=== PATIENT | male | born 1960 | race Caucasian/White ===

== ENCOUNTER 2018-09-01 10:45 | Day surgery (SDC) | payer BC ==
[2018-09-01] MEDS ORDERED: Lactated Ringers 1,000 ML IV SCH (11:00)
[2018-09-01] MEDS ORDERED: Lactated Ringers 1,000 ML IV ONE (13:25)
[2018-09-01] MEDS ORDERED: DIPRIVAN 200 MG/20 ML IV ONE ×2 (13:28→13:36)
[2018-09-01 14:53] VITALS: O2SAT 98
[2018-09-01 14:54] VITALS: BP 138/79; PULSE 60
--- NOTE | 2018-09-02 08:02 | OP ---
PROCEDURE DATE/TIME: 09/01/2018 1333 PREOPERATIVE DIAGNOSIS: Anemia. POSTOPERATIVE DIAGNOSIS: Normal colon. Minimal hemorrhoidal disease, moderate prep. PROCEDURE: Colonoscopy to cecum. PROCEDURE PERFORMED BY: Krystyna Pike M.D. COMPLICATIONS: None. ESTIMATED BLOOD LOSS: None. ANESTHESIA: MAC. SPECIMEN: None. HISTORY: This is a 58 year-old gentleman. It has been nine years since his last colonoscopy. He did not have any issues at that time. However, he was recently noted to be anemic and so he presents for colonoscopy. All risks, benefits, alternatives, H&P and consent have been reviewed and confirmed with the patient. Any remaining questions answered. DESCRIPTION OF PROCEDURE: He was brought to the endoscopy suite. Laid in left lateral decubitus position. A complete time out was performed. First a rectal exam was done. He does have mild hemorrhoidal disease and he also has an enlarged prostate which was already known. The scope was then inserted and gently advanced to the level of the cecum. There was a moderate amount of liquid stool throughout the colon. We suctioned and irrigated this. Overall prep was satisfactory for exam concerning lesion. Appendiceal orifice and ileocecal valve were identified and these were normal. The scope was then carefully withdrawn taking a circumferential view and continuing to irrigate and suction. The colon looked normal. I did not find any lesions or any cause of his anemia. There was no old blood. No new blood. No blood at all. The scope is completely withdrawn. The patient tolerated the procedure very well. No immediate complications. Due to the fact that we could miss a very small or very flat lesion because the prep was not perfect, I will put him on a five year interval. 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
== END 2018-09-01 15:00 | disposition home or self-care (01) ==
LOC: SDC 10:45
PROVIDERS: ATTEND Surgery
DX: D64.9 Anemia, unspecified (principal); K64.4 Residual hemorrhoidal skin tags
CPT/HCPCS: J2704

== ENCOUNTER 2020-08-08 09:24 | Day surgery (SDC) | payer BC ==
--- NOTE | 2020-08-08 08:29 | HP ---
HISTORY OF PRESENT ILLNESS: This is a gentleman who presents with a history of Dickens's disease and a hiatal hernia here for EGD surveillance. The patient reports occasional rare reflux better controlled with his lifestyle changes. PAST MEDICAL/SURGICAL HISTORY: Includes reflux disease, Dickens's disease, hiatal hernia, hemorrhoidectomy, knee surgery. MEDICATIONS: Omeprazole. ALLERGIES: PENICILLIN. SULFA. SOCIAL HISTORY: No tobacco. No alcohol use. FAMILY HISTORY: Father with liver cancer. Mother with kidney disease. PHYSICAL EXAMINATION: GENERAL: No acute distress. CVS: Regular rate and rhythm. PULMONARY: Nonlabored respirations. ABDOMEN: Soft, nontender, nondistended. EXTREMITIES: Normal. DIAGNOSIS: Hiatal hernia. Dickens's disease. PLAN: EGD. All risks, benefits and alternatives regarding EGD and biopsy have been discussed with him in detail and these will be based on their findings. The patient agreed and would like to proceed.
[2020-08-08] MEDS ORDERED: Lactated Ringers 1,000 ML IV ONE ×2 (09:34→11:05)
[2020-08-08] MEDS: Lactated Ringers 1,000 ML IV SCH (09:37)
[2020-08-08] MEDS ORDERED: DIPRIVAN 200 MG/20 ML IV ONE (10:24)
[2020-08-08] MEDS ORDERED: Versed 2 MG/2 ML Injection ONE (10:25)
[2020-08-08 11:34] VITALS: BP 119/78; PULSE 71; O2SAT 95
--- NOTE | 2020-08-10 08:53 | OP ---
PROCEDURE DATE/TIME: 08/08/2020 1027 PREOPERATIVE DIAGNOSES: 1) Dickens's disease. 2) Hiatal hernia. POSTOPERATIVE DIAGNOSES: 1) Dickens's disease. 2) Hiatal hernia. 3) Gastric polyp. 4) Minimal gastritis. PROCEDURE: EGD with biopsy. PROCEDURE PERFORMED BY: Krystyna Pike M.D. ESTIMATED BLOOD LOSS: Minimal. ANESTHESIA: MAC. COMPLICATIONS: None. SPECIMENS: 1) Distal esophagus history of Dickens's disease biopsies from 4 to 25 cm and biopsies from 25 to 26 cm. 2) Antral biopsy. 3) Gastric polyp. 4) Esophageal nodule biopsy at 19 cm. HISTORY: This is a 60 year-old gentleman who has a history of hiatal hernia. He also has a history of Dickens's disease which we are following. He is here for EGD. Risks, benefits, alternatives discussed with him preoperatively. H&P reviewed and confirm. Consent reviewed and confirmed. DESCRIPTION OF PROCEDURE: He was brought to the endoscopy suite, laid in the left lateral decubitus position. A complete time out performed. The scope gently introduced into the mouth, oropharynx, down into the esophagus, stomach and duodenum. Duodenum is normal. In the stomach the patient has innumerable gastric polyps. The largest most concerning of these polyps were removed with hot snare. All the polyps however do look very benign to me. I do not see any sign of malignancy but I did sample the polyp. All polypectomy sites were hemostatic. He did have a trace amount of gastritis most significant in the antrum this was biopsied and sent for pathology this was very minimal. Biopsy site was hemostatic. There are no other findings outside of the hiatal hernia, polyps and minimal gastritis. The scope was then withdrawn to the distal esophagus. Here the patient has changes consistent with his history of Dickens's disease. This looks similar to his prior Dickens's disease changes with changes from about 24 to 26 cm. He does have a large hiatal hernia. He also had a small benign appearing nodule at 19 cm. I did targeted and four quadrant biopsies between 24 and 26 cm and then also I biopsied the nodule separately and sent these all to pathology. The nodule is about 75% removed with the biopsy forceps. We will waiting the pathology report. There were no other findings. All sites hemostatic. The patient tolerated the procedure well. Tentatively we will plan to do this again in a minimum of one year due to his history of Dickens's disease sooner if the pathology is concerning.
== END 2020-08-08 11:44 | disposition home or self-care (01) ==
LOC: SDC 09:24
PROVIDERS: ATTEND Surgery
DX: K22.70 Barrett's esophagus without dysplasia (principal); K44.9 Diaphragmatic hernia without obstruction or gangrene; K29.70 Gastritis, unspecified, without bleeding; K31.7 Polyp of stomach and duodenum; K20.90 Esophagitis, unspecified without bleeding
CPT/HCPCS: 88305; J2250; J2704

== ENCOUNTER 2022-02-05 09:31 | Day surgery (SDC) | payer BC ==
[2022-02-05] MEDS ORDERED: Lactated Ringers 1,000 ML IV ONE (09:56)
[2022-02-05] MEDS ORDERED: Lactated Ringers 1,000 ML IV SCH (10:00)
[2022-02-05] MEDS ORDERED: Xylocaine-Mpf 2% 5 Ml Vial ONE (11:57)
[2022-02-05] MEDS ORDERED: Versed 2 MG/2 ML Injection ONE (11:57)
[2022-02-05] MEDS ORDERED: DIPRIVAN 200 MG/20 ML IV ONE ×2 (11:57→12:08)
[2022-02-05 12:50] VITALS: O2SAT 95
[2022-02-05 13:00] VITALS: BP 134/86; PULSE 62
--- NOTE | 2022-02-06 08:57 | OP ---
PROCEDURE DATE/TIME: 02/05/2022 1203 PREOPERATIVE DIAGNOSES: 1) Hiatal hernia. 2) Reflux esophagitis/Dickens's. POSTOPERATIVE DIAGNOSES: 1) Large hiatal hernia. 2) Gastric polyps. 3) Trace gastritis. 4) Gastroesophageal reflux disease with reflux changes. PROCEDURE: EGD with biopsy. PROCEDURE PERFORMED BY: Krystyna Pike M.D. ESTIMATED BLOOD LOSS: Minimal. ANESTHESIA: MAC. COMPLICATIONS: None. SPECIMENS: 1) Antral biopsy. 2) Distal esophagus at 26 cm. HISTORY: This is a gentleman who presents for EGD for surveillance. Risks, benefits, alternatives. H&P and consent have all been reviewed and confirmed with him preoperatively. DESCRIPTION OF PROCEDURE: He was then brought back to the endoscopy suite. Laid in the left lateral decubitus position. A complete time out was performed. Anesthesia is induced. The scope is then introduced through his mouth, oropharynx down into the esophagus, stomach and then duodenum to approximately the second portion of the duodenum. The duodenum was normal. As we withdrew the scope back into the stomach, he had some very minimal gastritis again this was trace. Overall his stomach looked extremely healthy. He had multiple gastric polyps that all appeared to be benign. On retroflex view he definitively has a significant hiatal hernia which is consistent with his history. We then unretroflexed and then carefully withdrew the scope. As we withdrew we continued to see the large amount of gastric content in his chest. His actual gastroesophageal junction is at approximately 26 cm from the incisors and this is consistent with prior scope. He does not have any long columns of Dickens's. His Dickens's disease appears to be very localized with short segment disease. Specifically, there were two areas with minor irregularity and these extended for only about 1 cm. I did take biopsies in all four quadrants and then came up to the level of 24 cm to take additional biopsies and all sites were hemostatic after biopsy. There are no masses or sites of concern here and then the scope was further withdrawn and the remainder of the esophagus was normal although very short and he does continue to have acid reflux. The scope was completely withdrawn. The patient tolerated the procedure very well. PLAN: EGD in two years pending final pathology. Continue on anti-reflux diet and lifestyle. Continue anti-reflux medication. I have offered to discuss surgical options with the patient as well. We will further discuss that on our next appointment.
== END 2022-02-05 13:26 | disposition home or self-care (01) ==
LOC: SDC 09:31
PROVIDERS: ATTEND Surgery
DX: K44.9 Diaphragmatic hernia without obstruction or gangrene (principal); K21.00 Gastro-esophageal reflux disease with esophagitis, without bleeding; K22.70 Barrett's esophagus without dysplasia; K31.9 Disease of stomach and duodenum, unspecified; K29.70 Gastritis, unspecified, without bleeding; K21.9 Gastro-esophageal reflux disease without esophagitis
CPT/HCPCS: J2250; J2704

== ENCOUNTER 2024-02-03 09:52 | Day surgery (SDC) | payer MEDICARE, BC ==
[2024-02-03 10:09] VITALS: O2SAT 98
[2024-02-03] MEDS ORDERED: DIPRIVAN 200 MG/20 ML IV ONE ×2 (11:50→12:19)
[2024-02-03 13:26] VITALS: RESP 17; TEMP 96.9
[2024-02-03 13:36] VITALS: BP 114/78; PULSE 64
--- NOTE | 2024-02-04 14:10 | OP ---
SURGERY DATE/TIME: 02/03/2024 2091 - [id number] PREOPERATIVE DIAGNOSES: 1) Dickens disease and due for screening/surveillance colonoscopy. 2) History of polyps. POSTOPERATIVE DIAGNOSES: 1) Large hiatal hernia. 2) Dickens disease. 3) Gastritis. 4) Colon polyps. 5) Enlarged right posterior hemorrhoid. 6) Gastric polyps. PROCEDURES: 1) Esophagogastroduodenoscopy with cold snare gastric polypectomy and cold forceps biopsies. 2) Colonoscopy with cold snare polypectomy of rectal polyp and cold forceps polypectomies of the colon polyps. SURGEON: Krystyna Pike MD ANESTHESIA: MAC. ESTIMATED BLOOD LOSS: Minimal. COMPLICATIONS: None. SPECIMENS: Antral biopsy, gastric polyps, gastric cardia biopsy, additional gastric biopsies within the hernia at 33 and 35 cm, distal esophagus biopsies at 25 cm and distal esophagus biopsies at 23 cm, cecal polyp, transverse colon polyp, sigmoid polyp, and rectal polyp. INDICATIONS: This is a gentleman who is known to me with a longstanding history of Dickens disease. He has a large hiatal hernia. His symptoms have been very well controlled with diet and lifestyle changes, as well as a daily PPI. He presents for EGD. He also is due for screening and surveillance colonoscopy with a history of polyps in the past. He has done a prep. His H and P has been completed. He understands both procedures. He would like to proceed. Consent has been obtained. DESCRIPTION OF PROCEDURE AND FINDINGS: The patient was brought back to the endoscopy suite. He was laid in the left lateral decubitus position. A complete time-out was performed. The scope was then introduced into the mouth, oropharynx, down into the esophagus, stomach, and then the duodenum. The duodenum was normal to the extent visualized up until approximately the second portion of the duodenum. As the scope was withdrawn back in the stomach, the patient did have some old blood in his stomach that was very minimal with erythema in the cardia and then some erythema in the antrum but more prominent in the cardia. He also had innumerable polyps. All appeared to be very benign and pedunculated polyps consistent with PPI use. The polyps ranged from a few millimeters in size to approximately 1 cm. One polyp was bleeding. He did have some liquid in the stomach, and it bled easily which I suspect is from suctioning. I removed this polyp in entirety with a cold snare, retrieved this, and sent this to Pathology. I also took an additional one of the larger polyps for sampling, and these sites were both hemostatic. I also took cold forceps biopsies in the antrum to rule out H pylori, as well as in the cardia where he had erythema. There were no signs of masses or areas of concern. The polyps all appeared to be very benign. Once this was done, we then carefully withdrew the scope back into the hernia. He did have a minimal amount of erythema along the tubularized stomach that was up within the large hernia sac. We took a couple of biopsies at approximately 35 and 33 cm. As we continued to withdraw the scope, his GE junction appeared to be quite high at 25 cm. He has a very large sliding-type hiatal hernia. I took multiple biopsies at 24 to 25 cm and sent these as distal esophagus at 25 cm, and then I took multiple biopsies at 23 cm and sent these as distal esophagus at 23 cm. These were to evaluate the Dickens disease. He does have Dickens changes along approximately 2 cm, but overall these look very stable. He does not have any extension of the Dickens's beyond his scopes before. All sites of biopsy and all polypectomy sites were reevaluated after removal, and all sites are hemostatic. He looks very good, and so the scope was then carefully fully withdrawn. I did change the light to look at this with both lighting, and I do not see any other Dickens changes up higher in the esophagus. The remainder of the esophagus looks very normal. The scope was completely removed. He tolerated the procedure well. Then, he was positioned for colonoscopy. First, a rectal inspection and a digital exam was done. He does have an enlarged right posterior hemorrhoidal column. This is still mildly to moderately enlarged. I would not recommend any surgical intervention at this time. There is no bleeding, and there are no additional masses identified. The scope was then inserted and gently advanced to the level of the cecum. The prep overall was satisfactory. He did not have any concerning findings within his colon. I did find multiple polyps. The polyps were identified as follows: Small cecal polyp, transverse colon polyp and sigmoid polyp, all were approximately 2 to 3 mm taken in entirety with cold forceps. Sites were hemostatic. Tissue fully removed and retrieved. All sent to Pathology. Then, he had a small rectal polyp that was about 2 to 3 mm that was taken with a cold snare and retrieved in entirety. All polyps were sent to Pathology. All sites hemostatic. No other findings on colonoscopy. Tentatively, we will plan for an EGD in approximately 2 years and a colonoscopy in approximately 3 to 5 years. We will await his final pathology report to determine the final interval. I have discussed all the results with his family. He is going to continue his PPI treatment and his diet and lifestyle treatment for the reflux and hiatal hernia, and he will see me in the office to follow up on his final results. All other instructions were given to the patient and his family.
== END 2024-02-03 13:36 | disposition home or self-care (01) ==
LOC: SDC 09:52
PROVIDERS: ATTEND Surgery
DX: Z12.11 Encounter for screening for malignant neoplasm of colon (principal); Z09 Encounter for follow-up examination after completed treatment for conditions other than malignant neoplasm; Z86.0100 Personal history of colon polyps, unspecified; K22.70 Barrett's esophagus without dysplasia; K44.9 Diaphragmatic hernia without obstruction or gangrene; K29.70 Gastritis, unspecified, without bleeding; K64.4 Residual hemorrhoidal skin tags; K31.7 Polyp of stomach and duodenum; D12.0 Benign neoplasm of cecum; D12.3 Benign neoplasm of transverse colon
CPT/HCPCS: J2704